=== PATIENT | male | born 1980 | race African-American/Black ===

== ENCOUNTER 2022-01-18 10:24 | Emergency (ER) | payer MEDICAID ==
[~2022-01-18] VITALS: Ht 177.8 cm; Wt 83.2 kg
[2022-01-18 10:28] VITALS: BP 143/78
[2022-01-18] MEDS ORDERED: CEPH-558 PO (11:13)
== END 2022-01-18 12:38 | disposition home or self-care (01) ==
LOC: EMS 10:24
DX: K13.0 Diseases of lips (principal); F17.210 Nicotine dependence, cigarettes, uncomplicated
CPT/HCPCS: 99283